=== PATIENT | male | born 1950 | race American Indian/Alaskan Native ===

== ENCOUNTER 2016-10-18 01:17 | Emergency (ER) | payer SELFPAY ==
[2016-10-18] MEDS ORDERED: NORCO 5/325 PO ONE (03:23)
--- NOTE | 2016-10-18 03:30 | Emergency Department Report ---
HPI - General Chief Complaint: Head Injury Time Seen by Provider: 10/18/16 03:17 - HPI HPI: Room 4 The patient is a 66-year-old male presenting with a chief complaint of fall. The patient is currently under 1013 at [facility] for threatening to kill his . The patient states he thought he was in his usual wheelchair that allows him to tilt back to go over bumps in the road; however he was in a different one. The patient states when he tilted back and attempted over a hump on the floor he fell backwards striking the back of his head. Staff states the fall occurred between 22:00-23:00. There was no reported loss of consciousness. When asked how he feels patient states he feels "all right." Patient does complain of slight pressure in his head since the fall but also complains of diffuse body aches and arthritis Location: Head, all over Duration: [see above] Quality: Pressure Severity: 07/27 Modifying factors: Unknown Context: [see above] Mode of transportation: [not driving] ED Past Medical Hx - Past Medical History Previous Medical History?: Yes Hx Hypertension: Yes Hx Arthritis: Yes - Surgical History Past Surgical History?: No - Family History Family history: no significant - Social History Smoking Status: Unknown if ever smoked Substance Use Type: Alcohol, Marijuana, Prescribed ED Review of Systems ROS: Stated complaint: HEAD PAIN Other details as noted in HPI Comment: All other systems reviewed and negative Constitutional: denies: chills, fever Eyes: denies: eye pain, eye discharge, vision change ENT: denies: ear pain, throat pain Respiratory: denies: cough, shortness of breath, wheezing Cardiovascular: denies: chest pain, palpitations Endocrine: no symptoms reported Gastrointestinal: denies: abdominal pain, nausea, diarrhea Genitourinary: denies: urgency, dysuria Musculoskeletal: arthralgia, myalgia Neurological: headache Psychiatric: denies: anxiety, depression Hematological/Lymphatic: denies: easy bleeding, easy bruising Physical Exam - Physical Exam Vital Signs: Vital Signs 10/18/16 01:38 Temperature 98 F Pulse Rate 90 Respiratory 20 Rate Blood Pressure 148/79 Blood Pressure 148/79 [Left] O2 Sat by Pulse 100 Oximetry Physical Exam: GENERAL: The patient is well-developed well-nourished male lying on stretcher not appearing to be in acute distress. [] HEENT: Normocephalic. No obvious swellings lacerations or ecchymosis to the skull. Extraocular motions are intact. Patient has moist mucous membranes. NECK: Supple. Trachea midline. No axial step offs CHEST/LUNGS: Clear to auscultation. There is no respiratory distress noted. HEART/CARDIOVASCULAR: Regular. There is no tachycardia. There is no gallop rub or murmur. ABDOMEN: Abdomen is soft, nontender. Patient has normal bowel sounds. There is no abdominal distention. SKIN: There is no rash. There is no edema. There is no diaphoresis. NEURO: The patient is awake and alert. The patient is cooperative. The patient has no focal neurologic deficits. The patient has normal speech. Cranial nerves II through XII grossly intact MUSCULOSKELETAL: There is no tenderness or deformity. There is no evidence of acute injury. ED Course Vital Signs 10/18/16 01:38 Temperature 98 F Pulse Rate 90 Respiratory 20 Rate Blood Pressure 148/79 Blood Pressure 148/79 [Left] O2 Sat by Pulse 100 Oximetry ED Medical Decision Making - Radiology Data Radiology results: report reviewed (CT head, CT cervical spine), image reviewed (CT head, CT cervical spine) CT head (read by radiologist)-there is no evidence of acute intracranial process. Atrophy is noted CT cervical spine (read by radiologist)-advanced degenerative arthritis dig into this changes identified at all cervical vertebral levels. No acute fracture or dislocation of the cervical spine. - Differential Diagnosis ICH, skull fracture, closed head injury, cervical fracture Critical care attestation.: If time is entered above; I have spent that time in minutes in the direct care of this critically ill patient, excluding procedure time. ED Disposition Clinical Impression: Closed head injury, Arthralgia Disposition: DC/TX PSY HOSP/PSY UNIT Is pt being admited?: No Does the pt Need Aspirin: No Condition: Stable Instructions: Minor Head Injury (ED) Additional Instructions: Return to the emergency department immediately should you develop worsening symptoms, fever, inability to tolerate food or liquid or any other concerns. Referrals: PRIMARY CARE, [Primary Care Provider] - 3-5 Days Time of Disposition: 05:49
--- NOTE | 2016-10-18 05:24 | Cat Scan Report ---
FINAL REPORT PROCEDURE: CT HEAD/BRAIN WO CON TECHNIQUE: Computerized tomography of the head was performed without contrast material. HISTORY: pressure after fall backwards striking head COMPARISON: No prior studies are available for comparison. FINDINGS: Skull and scalp: Normal. Paranasal sinuses: Normal. Ventricles and subarachnoid spaces: Normal. Cerebrum: No evidence of hemorrhage, acute infarction or mass. Mild atrophy is identified.. Cerebellum and brainstem: No evidence of hemorrhage, acute infarction or mass. Vasculature: Normal. Comments: None. IMPRESSION: There is no evidence of an acute intracranial process. Atrophy is noted.
--- NOTE | 2016-10-18 05:26 | Cat Scan Report ---
FINAL REPORT PROCEDURE: CT CERVICAL SPINE WO CON TECHNIQUE: Computerized tomography of the cervical spine was performed from the skull base to T1 without contrast material. HISTORY: pressure after fall backwards striking head COMPARISON: No prior studies are available for comparison. FINDINGS: The alignment is normal. There is significant spur formation off of the vertebral bodies and the facets at all levels. Moderate loss of disc space height is identified at all levels. Mild AP and bilateral neural foramen stenosis is identified at the C 3 4, C4-5 and C5-6 levels. Circumferential bulging discs are identified at all cervical vertebral disc levels. No acute fracture or dislocation of the cervical spine. IMPRESSION: Advanced degenerative arthritis degenerative disc changes identified at all cervical vertebral levels. Mild spinal canal stenosis identified at the C3-4, C4-5 and C5-6 levels..
[2016-10-18] MEDS ORDERED: ATIVAN ONE (05:47)
[2016-10-18] MEDS ORDERED: ATIVAN IM ONE (05:47)
[2016-10-18 05:59] VITALS: BP 142/72
== END 2016-10-18 07:09 ==
LOC: ED 01:17
DX: S09.90XA Unspecified injury of head, initial encounter (principal); M25.50 Pain in unspecified joint; I10 Essential (primary) hypertension; M19.90 Unspecified osteoarthritis, unspecified site; F12.10 Cannabis abuse, uncomplicated; W18.39XA Other fall on same level, initial encounter; Y93.9 Activity, unspecified; Y99.9 Unspecified external cause status; Y92.9 Unspecified place or not applicable
CPT/HCPCS: 70450; 72125; 96372; 99284; J2060